=== PATIENT | male | born 1940 | race Native Hawaiian/Other Pacific Islander ===

== ENCOUNTER 2016-08-06 10:43 | Emergency (ER) | payer OTHER, BC ==
[~2016-08-06] VITALS: Ht 188 cm; Wt 117.9 kg
[~2016-08-06 10:43] MED LIST: ADVAIR DISK1 IN; ALBUTEROL0.083 % IN; ASA LO-DOSE81 MG PO; FLOMAX0.4 MG OR; FLUT0.05 NAS; FURO40TA93 PO; GABA100C2 PO; GABA300C2 PO; GLIM2TAB PO; GLUCOPHAGE1000 MG PO; IPRASOL5 IN; KLOR-CON 1010 MEQ OR; LASIX40 MG OR; LATA0.00 OP; LEVEMIR FLEXPEN SC; LEVEMIR SC; METFORMIN1000 MG PO; MULT VITAMI1 PO; MUPI2OIN2 TOP; NYST100048 PO; PRED10TA27 PO; SIMV10TA PO; SIMV20TA2 PO; TAMS0.4C PO; THEOPHYLLINE400 MG PO; TIOTCAP2 INH; TRAVATAN Z0.004 % OP; TRIM800T12 PO; Z-PAK PO; simvastatin PO
[2016-08-06 11:02] VITALS: BP 130/79; TEMP 98.7
== END 2016-08-06 11:45 | disposition home or self-care (01) ==
LOC: ED 10:43
PROC: 3E1CX8Z Irrigation of Eye using Irrigating Substance (ICD-10-PCS; principal; 2016-08-06)
DX: T15.92XA Foreign body on external eye, part unspecified, left eye, initial encounter (principal); H57.12 Ocular pain, left eye
CPT/HCPCS: 99282

== ENCOUNTER 2016-08-13 08:16 | Outpatient (CLI) | payer OTHER, BC | END 2016-08-13 19:06 | disposition home or self-care (01) | LOC: RESP 08:16 | DX: J44.9 Chronic obstructive pulmonary disease, unspecified (principal) | CPT/HCPCS: 36600; 82805; 94640; 94664 ==

== ENCOUNTER 2016-08-28 06:55 | Outpatient (CLI) | payer OTHER, BC | END 2016-08-28 19:54 | disposition home or self-care (01) | LOC: CT 06:55 | DX: I71.4 Abdominal aortic aneurysm, without rupture (principal) | CPT/HCPCS: 36415; 82565; 84520 ==

== ENCOUNTER 2016-09-16 11:22 | Outpatient (CLI) | payer OTHER, BC ==
[2016-09-16 12:13] LABS: POTASSIUM 4.5 mmol/L (3.6-5.2)
== END 2016-09-16 22:51 | disposition home or self-care (01) ==
LOC: LABW 11:22
PROVIDERS: Internal Medicine Cardiovascular Disease
DX: R06.02 Shortness of breath (principal); Z79.899 Other long term (current) drug therapy; Z51.81 Encounter for therapeutic drug level monitoring
CPT/HCPCS: 36415; 80048; 83880

== ENCOUNTER 2016-09-22 11:24 | Inpatient (IN) | payer OTHER, BC ==
[~2016-09-22] VITALS: Ht 188 cm; Wt 120.2 kg
[2016-09-22 12:15] VITALS: BP 152/85; TEMP 102.8; Ht 188 cm; Wt 120.2 kg
[2016-09-22 15:15] LABS: PLATELET COUNT 131 K/uL (142-355)
[2016-09-22 16:00] VITALS: BP 148/86; TEMP 103.4
[2016-09-22 16:26] LABS: POTASSIUM 4.2 mmol/L (3.6-5.2)
[2016-09-22 20:00] VITALS: BP 111/60; TEMP 99.2
[2016-09-23 00:15] VITALS: BP 135/77; TEMP 99.8
[2016-09-23 04:00] VITALS: BP 131/84; TEMP 99.3
[2016-09-23 08:00] VITALS: BP 122/62; TEMP 98
[2016-09-23 08:02] LABS: PLATELET COUNT 197 K/uL (142-355)
[2016-09-23] MEDS ORDERED: GLIM2TAB PO (08:08)
[2016-09-23 12:00] VITALS: BP 107/61; TEMP 99.2
[2016-09-23 16:00] VITALS: BP 97/62; TEMP 98.7
[2016-09-23 20:20] VITALS: BP 138/75; TEMP 99.2
[2016-09-24 00:09] VITALS: BP 113/65; TEMP 100.7
[2016-09-24 04:00] VITALS: BP 123/76; TEMP 97.7
[2016-09-24 05:19] LABS: PLATELET COUNT 188 K/uL (142-355)
[2016-09-24 07:57] VITALS: BP 109/55; TEMP 98.9
[2016-09-24 12:00] VITALS: BP 116/63; TEMP 98.6
[2016-09-24 16:00] VITALS: BP 120/58; TEMP 100.2
[2016-09-24 20:00] VITALS: BP 124/61; TEMP 99.8
[2016-09-25] VITALS: BP 110/80; TEMP 98.6
[2016-09-25 04:00] VITALS: BP 104/55; TEMP 99.1
[2016-09-25 05:13] LABS: PLATELET COUNT 221 K/uL (142-355)
[2016-09-25 05:49] LABS: POTASSIUM 3.6 mmol/L (3.6-5.2)
[2016-09-25 08:00] VITALS: BP 118/65; TEMP 97.9
[2016-09-25 12:00] VITALS: BP 121/62; TEMP 97.6
[2016-09-25 16:00] VITALS: BP 102/62; TEMP 98
[2016-09-25 20:00] VITALS: BP 97/60; TEMP 99.3
[2016-09-26] VITALS: BP 143/86; TEMP 98.4
[2016-09-26 04:00] VITALS: BP 118/77; TEMP 98.4
[2016-09-26 05:36] LABS: PLATELET COUNT 237 K/uL (142-355)
[2016-09-26 05:52] LABS: POTASSIUM 3.6 mmol/L (3.6-5.2); SODIUM 135 mmol/L (136-145)
[2016-09-26 08:00] VITALS: BP 130/78; TEMP 97.9
[2016-09-26 12:00] VITALS: BP 121/60; TEMP 98.6
== END 2016-09-26 16:55 | disposition home or self-care (01) | DRG 871 ==
LOC: MED/SURG 11:24
PROVIDERS: Emergency Medicine; Internal Medicine; ADMIT Physician Assistant
DX: A41.89 Other specified sepsis (principal); J18.8 Other pneumonia, unspecified organism; J44.1 Chronic obstructive pulmonary disease with (acute) exacerbation; Y95 Nosocomial condition; R06.09 Other forms of dyspnea; I10 Essential (primary) hypertension; Z99.81 Dependence on supplemental oxygen; E11.9 Type 2 diabetes mellitus without complications; E03.8 Other specified hypothyroidism
CPT/HCPCS: 36415; 36600; 80053; 80200; 80335; 81000; 82805; 82948; 83735; 83880; 85027; 87070; 87185; 87205; 94640; 94664; 94760; 96372; J1650; J1956; J2543; J3260

== ENCOUNTER 2016-10-14 12:31 | Outpatient (CLI) | payer OTHER, BC ==
[2016-10-14 13:16] LABS: POTASSIUM 4.7 mmol/L (3.6-5.2); SODIUM 136 mmol/L (136-145)
== END 2016-10-14 19:16 | disposition home or self-care (01) ==
LOC: LABW 12:31
PROVIDERS: Internal Medicine Cardiovascular Disease
DX: R06.02 Shortness of breath (principal); Z79.899 Other long term (current) drug therapy; Z51.81 Encounter for therapeutic drug level monitoring
CPT/HCPCS: 36415; 80048; 83880

== ENCOUNTER 2016-10-30 12:41 | Outpatient (CLI) | payer OTHER, BC | END 2016-10-30 20:27 | disposition home or self-care (01) | LOC: US 12:41 | DX: M79.605 Pain in left leg (principal) ==

== ENCOUNTER 2016-11-11 10:30 | Outpatient (CLI) | payer OTHER, BC ==
[2016-11-11 11:03] LABS: POTASSIUM 4.7 mmol/L (3.6-5.2)
== END 2016-11-11 19:05 | disposition home or self-care (01) ==
LOC: LABW 10:30
PROVIDERS: Internal Medicine Cardiovascular Disease
DX: R60.9 Edema, unspecified (principal)
CPT/HCPCS: 36415; 80048

== ENCOUNTER 2016-11-18 07:23 | Outpatient (CLI) | payer OTHER, BC ==
[2016-11-18 08:35] LABS: PLATELET COUNT 171 K/uL (142-355)
[2016-11-18 08:54] LABS: POTASSIUM 4.6 mmol/L (3.6-5.2); SODIUM 139 mmol/L (136-145)
== END 2016-11-18 19:08 | disposition home or self-care (01) ==
LOC: LABW 07:23
PROVIDERS: Internal Medicine
DX: E11.49 Type 2 diabetes mellitus with other diabetic neurological complication (principal); Z12.5 Encounter for screening for malignant neoplasm of prostate
CPT/HCPCS: 36415; 80053; 80061; 81000; 82043; 82570; 83036; 84153; 84443; 85027

== ENCOUNTER 2016-12-22 13:52 | Outpatient (CLI) | payer OTHER, BC | END 2016-12-22 19:12 | disposition home or self-care (01) | LOC: RESP 13:52 | DX: J44.9 Chronic obstructive pulmonary disease, unspecified (principal); Z68.33 Body mass index [BMI] 33.0-33.9, adult ==

== ENCOUNTER 2017-01-01 14:51 | Emergency (ER) | payer OTHER, BC ==
[~2017-01-01] VITALS: Ht 188 cm; Wt 117.9 kg
[2017-01-01 16:47] VITALS: BP 115/66; TEMP 98.1
== END 2017-01-01 16:52 | disposition home or self-care (01) ==
LOC: ED 14:51
PROC: 3E10X8Z Irrigation of Skin and Mucous Membranes using Irrigating Substance (ICD-10-PCS; principal; 2017-01-01)
DX: S60.011A Contusion of right thumb without damage to nail, initial encounter (principal); W20.8XXA Other cause of strike by thrown, projected or falling object, initial encounter; Y93.89 Activity, other specified; Y92.89 Other specified places as the place of occurrence of the external cause; Y99.8 Other external cause status
CPT/HCPCS: 99282

== ENCOUNTER 2017-02-19 22:17 | Emergency (ER) | payer OTHER, BC ==
[~2017-02-19] VITALS: Ht 188 cm; Wt 117.9 kg
[2017-02-19 23:39] LABS: PLATELET COUNT 187 K/uL (142-355)
[2017-02-19 23:45] LABS: POTASSIUM 4.4 mmol/L (3.6-5.2)
[2017-02-20 01:03] VITALS: BP 136/90; TEMP 98.9
== END 2017-02-20 01:15 | disposition home or self-care (01) ==
LOC: ED 22:17
PROVIDERS: Specialist
DX: K59.09 Other constipation (principal); R10.84 Generalized abdominal pain
CPT/HCPCS: 36415; 80053; 81000; 85027; 87040; 87205; 96374; 99284; J1885

== ENCOUNTER 2017-05-10 07:29 | Outpatient (CLI) | payer OTHER, BC ==
[2017-05-10 07:54] LABS: PLATELET COUNT 165 K/uL (142-355)
== END 2017-05-10 19:29 | disposition home or self-care (01) ==
LOC: LABW 07:29
PROVIDERS: Internal Medicine
DX: E11.9 Type 2 diabetes mellitus without complications (principal)
CPT/HCPCS: 36415; 80053; 80061; 81000; 82043; 82570; 83036; 84439; 84443; 85027

== ENCOUNTER 2017-07-12 11:27 | Emergency (ER) | payer OTHER, BC ==
[~2017-07-12] VITALS: Ht 188 cm; Wt 114.3 kg
[2017-07-12 12:09] LABS: PLATELET COUNT 147 K/uL (142-355)
[2017-07-12 15:47] VITALS: BP 162/74; TEMP 99
== END 2017-07-12 16:11 | disposition home or self-care (01) ==
LOC: ED 11:27
DX: J44.1 Chronic obstructive pulmonary disease with (acute) exacerbation (principal); E11.9 Type 2 diabetes mellitus without complications; R00.0 Tachycardia, unspecified
CPT/HCPCS: 36415; 80053; 81000; 82550; 84484; 85027; 87081; 87804; 87880; 93005; 94640; 94664; 94760; 96372; 99283; J0696

== ENCOUNTER 2017-10-22 09:25 | Outpatient (CLI) | payer OTHER, BC ==
[2017-10-22 10:16] LABS: PLATELET COUNT 161 K/uL (142-355)
[2017-10-22 12:23] LABS: POTASSIUM 4.7 mmol/L (3.6-5.2)
== END 2017-10-22 20:23 | disposition home or self-care (01) ==
LOC: LABW 09:25
PROVIDERS: Internal Medicine
DX: E11.42 Type 2 diabetes mellitus with diabetic polyneuropathy (principal)
CPT/HCPCS: 36415; 80053; 80061; 81000; 82043; 82570; 83036; 84439; 84443; 85027

== ENCOUNTER 2017-12-27 08:51 | Outpatient (CLI) | payer OTHER, BC | END 2017-12-27 19:48 | disposition home or self-care (01) | LOC: US 08:51 | DX: R31.0 Gross hematuria (principal) ==

== ENCOUNTER 2018-04-25 07:51 | Outpatient (CLI) | payer OTHER, BC ==
[2018-04-25 08:13] LABS: PLATELET COUNT 244 K/uL (142-355)
== END 2018-04-25 19:26 | disposition home or self-care (01) ==
LOC: LABW 07:51
PROVIDERS: Internal Medicine
DX: E11.9 Type 2 diabetes mellitus without complications (principal)
CPT/HCPCS: 36415; 80053; 80061; 81000; 82043; 82570; 83036; 84153; 84439; 84443; 85027

== ENCOUNTER 2018-08-23 17:03 | Emergency (ER) | payer OTHER, BC ==
[~2018-08-23] VITALS: Ht 188 cm; Wt 116.6 kg
[2018-08-23 18:45] VITALS: BP 121/62; TEMP 98.9
== END 2018-08-23 18:45 | disposition home or self-care (01) ==
LOC: ED 17:03
DX: J11.1 Influenza due to unidentified influenza virus with other respiratory manifestations (principal)
CPT/HCPCS: 87502; 87651; 99283

== ENCOUNTER 2018-09-20 06:45 | Outpatient (CLI) | payer OTHER, BC ==
[2018-09-20 08:29] LABS: PLATELET COUNT 182 K/uL (142-355)
[2018-09-20 08:43] LABS: POTASSIUM 4.1 mmol/L (3.6-5.2)
== END 2018-09-20 23:46 | disposition home or self-care (01) ==
LOC: LAB 06:45
PROVIDERS: Internal Medicine
DX: E11.8 Type 2 diabetes mellitus with unspecified complications (principal)
CPT/HCPCS: 36415; 80053; 80061; 81000; 83036; 84439; 84443; 85027

== ENCOUNTER 2019-02-04 08:14 | Outpatient (CLI) | payer OTHER, BC ==
[2019-02-04 08:35] LABS: PLATELET COUNT 163 K/uL (142-355)
[2019-02-04 08:38] LABS: POTASSIUM 4.7 mmol/L (3.6-5.2)
[2019-02-04 08:48] LABS: PARTIAL THROMBOPLASTIN TIME 25.2 SECONDS (24.5-33.6)
== END 2019-02-04 23:25 | disposition home or self-care (01) ==
LOC: LABW 08:14
PROVIDERS: Surgery
DX: Z01.810 Encounter for preprocedural cardiovascular examination (principal); Z01.812 Encounter for preprocedural laboratory examination; I71.4 Abdominal aortic aneurysm, without rupture; Z51.81 Encounter for therapeutic drug level monitoring; Z79.899 Other long term (current) drug therapy
CPT/HCPCS: 36415; 80048; 85027; 85610; 85730; 93005

== ENCOUNTER 2019-03-02 10:49 | Outpatient (CLI) | payer OTHER, BC | END 2019-03-02 23:59 | disposition home or self-care (01) | LOC: LAB 10:49 | DX: Z48.812 Encounter for surgical aftercare following surgery on the circulatory system (principal); I71.4 Abdominal aortic aneurysm, without rupture; E11.65 Type 2 diabetes mellitus with hyperglycemia; J44.9 Chronic obstructive pulmonary disease, unspecified; I73.89 Other specified peripheral vascular diseases | CPT/HCPCS: 85014; 85018 ==

== ENCOUNTER 2019-03-21 10:30 | Outpatient (CLI) | payer OTHER, BC ==
[2019-03-21 10:57] LABS: PLATELET COUNT 175 K/uL (142-355)
== END 2019-03-21 22:54 | disposition home or self-care (01) ==
LOC: LAB 10:30
PROVIDERS: Physician Assistant
DX: D50.0 Iron deficiency anemia secondary to blood loss (chronic) (principal)
CPT/HCPCS: 85027

== ENCOUNTER 2019-04-24 08:17 | Outpatient (CLI) | payer OTHER, BC ==
[2019-04-24 09:16] LABS: PLATELET COUNT 234 K/uL (142-355)
[2019-04-24 09:28] LABS: POTASSIUM 4.5 mmol/L (3.6-5.2)
== END 2019-04-24 22:13 | disposition home or self-care (01) ==
LOC: LABW 08:17
PROVIDERS: Internal Medicine
DX: E11.51 Type 2 diabetes mellitus with diabetic peripheral angiopathy without gangrene (principal); Z12.5 Encounter for screening for malignant neoplasm of prostate; N40.0 Benign prostatic hyperplasia without lower urinary tract symptoms; Z79.899 Other long term (current) drug therapy
CPT/HCPCS: 36415; 80053; 80061; 81000; 82043; 82570; 83036; 84153; 84439; 84443; 85027

== ENCOUNTER 2019-05-17 13:54 | Outpatient (CLI) | payer OTHER, BC | END 2019-05-17 19:53 | disposition home or self-care (01) | LOC: RESP 13:54 | DX: J44.9 Chronic obstructive pulmonary disease, unspecified (principal) ==

== ENCOUNTER 2019-07-25 09:23 | Outpatient (CLI) | payer OTHER, BC ==
[2019-07-25 10:15] LABS: PLATELET COUNT 179 K/uL (142-355)
[2019-07-25 10:38] LABS: POTASSIUM 4.5 mmol/L (3.6-5.2)
== END 2019-07-25 17:00 | disposition home or self-care (01) ==
LOC: LABW 09:23
PROVIDERS: Internal Medicine
DX: E11.59 Type 2 diabetes mellitus with other circulatory complications (principal); N40.0 Benign prostatic hyperplasia without lower urinary tract symptoms
CPT/HCPCS: 36415; 80053; 80061; 81000; 82043; 82570; 83036; 84153; 84439; 84443; 85027

== ENCOUNTER 2019-09-29 11:04 | Outpatient (CLI) | payer OTHER, BC | END 2019-09-29 20:14 | disposition home or self-care (01) | LOC: LABW 11:04 | DX: N39.0 Urinary tract infection, site not specified (principal) | CPT/HCPCS: 81000; 87077; 87086; 87088; 87186 ==

== ENCOUNTER 2020-01-17 19:29 | Outpatient (CLI) | payer OTHER, BC ==
[2020-01-17 21:11] LABS: POTASSIUM 4.6 mmol/L (3.6-5.2)
== END 2020-01-17 22:11 | disposition home or self-care (01) ==
LOC: LABW 19:29
PROVIDERS: Internal Medicine
DX: E11.42 Type 2 diabetes mellitus with diabetic polyneuropathy (principal); E03.8 Other specified hypothyroidism
CPT/HCPCS: 36415; 80053; 80061; 81000; 82043; 82570; 83036; 84439; 84443

== ENCOUNTER 2020-06-09 23:45 | Emergency (ER) | payer OTHER, BC ==
[~2020-06-09] VITALS: Ht 188 cm; Wt 116.6 kg
[2020-06-10 00:47] LABS: POTASSIUM 4.3 mmol/L (3.6-5.2); SODIUM 130 mmol/L (136-145)
[2020-06-10 00:48] LABS: PLATELET COUNT 174 K/uL (142-355)
[2020-06-10 02:13] VITALS: BP 121/51; TEMP 98.9
== END 2020-06-10 02:16 | disposition home or self-care (01) ==
LOC: ED 23:45
PROVIDERS: Family Medicine
DX: N39.0 Urinary tract infection, site not specified (principal); J44.1 Chronic obstructive pulmonary disease with (acute) exacerbation; Z20.828 Contact with and (suspected) exposure to other viral communicable diseases; W18.12XA Fall from or off toilet with subsequent striking against object, initial encounter; Y92.89 Other specified places as the place of occurrence of the external cause
CPT/HCPCS: 36415; 36600; 80053; 81000; 82550; 82553; 82805; 83605; 83880; 84484; 85027; 87077; 87086; 87088; 87186; 87502; 87635; 93005; 94664; 96360; 96365; 96375; 99284; J0696; J2930; U0003

== ENCOUNTER 2020-08-08 13:51 | Outpatient (CLI) | payer OTHER, BC | END 2020-08-08 20:48 | disposition home or self-care (01) | LOC: RAD 13:51 | PROVIDERS: ATTEND Internal Medicine | DX: R09.1 Pleurisy (principal) ==

== ENCOUNTER 2020-09-20 07:50 | Outpatient (CLI) | payer OTHER, BC ==
[2020-09-20 08:29] LABS: PLATELET COUNT 153 K/uL (142-355)
[2020-09-20 08:44] LABS: POTASSIUM 4.5 mmol/L (3.6-5.2)
== END 2020-09-20 21:10 | disposition home or self-care (01) ==
LOC: LABW 07:50
PROVIDERS: ATTEND Internal Medicine
DX: E11.9 Type 2 diabetes mellitus without complications (principal)
CPT/HCPCS: 36415; 80053; 80061; 81000; 82043; 83036; 84439; 84443; 85027

== ENCOUNTER 2020-10-16 08:22 | Outpatient (CLI) | payer OTHER, BC | END 2020-10-16 22:37 | disposition home or self-care (01) | LOC: RESP 08:22 | PROVIDERS: ATTEND Internal Medicine Sleep Medicine | DX: J44.9 Chronic obstructive pulmonary disease, unspecified (principal) ==

== ENCOUNTER 2020-12-30 18:11 | Outpatient (CLI) | payer OTHER, BC | END 2020-12-30 20:09 | disposition home or self-care (01) | LOC: LAB 18:11 | PROVIDERS: ATTEND Internal Medicine | DX: L03.115 Cellulitis of right lower limb (principal) | CPT/HCPCS: 87070; 87205 ==

== ENCOUNTER 2021-05-19 08:06 | Outpatient (CLI) | payer OTHER, BC ==
[2021-05-19 08:49] LABS: PLATELET COUNT 247 K/uL (142-355)
[2021-05-19 09:08] LABS: POTASSIUM 4.3 mmol/L (3.6-5.2)
== END 2021-05-19 19:20 | disposition home or self-care (01) ==
LOC: LABW 08:06
PROVIDERS: ATTEND Internal Medicine
DX: I10 Essential (primary) hypertension (principal); E11.9 Type 2 diabetes mellitus without complications; J44.9 Chronic obstructive pulmonary disease, unspecified; E03.8 Other specified hypothyroidism
CPT/HCPCS: 36415; 80053; 80061; 81000; 82043; 83036; 84439; 84443; 85027

== ENCOUNTER 2021-10-30 14:48 | Outpatient (CLI) | payer OTHER, BC | END 2021-10-30 21:29 | disposition home or self-care (01) | LOC: RAD 14:48 | PROVIDERS: ATTEND Nurse Practitioner Family | DX: J44.9 Chronic obstructive pulmonary disease, unspecified (principal) ==

== ENCOUNTER 2021-11-14 08:53 | Outpatient (CLI) | payer OTHER, BC ==
[2021-11-14 10:02] LABS: PLATELET COUNT 176 K/uL (142-355)
== END 2021-11-14 18:53 | disposition home or self-care (01) ==
LOC: LABW 08:53
PROVIDERS: ATTEND Internal Medicine
DX: E11.9 Type 2 diabetes mellitus without complications (principal)
CPT/HCPCS: 36415; 80053; 80061; 81000; 83036; 84439; 84443; 85027

== ENCOUNTER 2022-02-25 13:37 | Outpatient (CLI) | payer OTHER, BC | END 2022-02-25 19:26 | disposition home or self-care (01) | LOC: RAD 13:37 | PROVIDERS: ATTEND Nurse Practitioner Family | DX: J44.9 Chronic obstructive pulmonary disease, unspecified (principal) ==

== ENCOUNTER 2022-03-03 12:56 | Outpatient (CLI) | payer OTHER, BC | END 2022-03-03 21:38 | disposition home or self-care (01) | LOC: RESP 12:56 | PROVIDERS: ATTEND Nurse Practitioner Family | DX: J44.9 Chronic obstructive pulmonary disease, unspecified (principal) ==

== ENCOUNTER 2023-03-26 11:34 | Outpatient (CLI) | payer OTHER, BC ==
[~2023-03-26 11:34] MED LIST changes: +GABA400C2 PO; +KLOR-CON M1010 MEQ PO; +LEVO0.0529 PO; +METF100038 PO; +UROXATRAL10 MG PO; +WIXELA INHUB 501 AER INH
[2023-03-26 12:08] LABS: PLATELET COUNT 175 K/uL (142-355)
[2023-03-26 12:34] LABS: POTASSIUM 4.2 mmol/L (3.6-5.2)
== END 2023-03-26 19:09 | disposition home or self-care (01) ==
LOC: LABW 11:34
PROVIDERS: ATTEND Internal Medicine
DX: E11.9 Type 2 diabetes mellitus without complications (principal); E03.8 Other specified hypothyroidism; I25.10 Atherosclerotic heart disease of native coronary artery without angina pectoris; R06.02 Shortness of breath
CPT/HCPCS: 80053; 80061; 81002; 83036; 83880; 84439; 84443; 85027

== ENCOUNTER 2023-08-18 07:59 | Outpatient (CLI) | payer OTHER, BC ==
[2023-08-18 08:34] LABS: PLATELET COUNT 185 K/uL (142-355)
[2023-08-18 08:59] LABS: POTASSIUM 4.7 mmol/L (3.6-5.2)
== END 2023-08-18 19:16 | disposition home or self-care (01) ==
LOC: LABW 07:59
PROVIDERS: ATTEND Internal Medicine
DX: E11.9 Type 2 diabetes mellitus without complications (principal); N40.0 Benign prostatic hyperplasia without lower urinary tract symptoms
CPT/HCPCS: 80053; 80061; 81002; 83036; 84153; 84439; 84443; 85027

== ENCOUNTER 2023-09-03 12:27 | Outpatient (CLI) | payer OTHER, BC | END 2023-09-03 20:08 | disposition home or self-care (01) | LOC: MRI 12:27 | PROVIDERS: ATTEND Family Medicine | DX: E11.621 Type 2 diabetes mellitus with foot ulcer (principal); L97.511 Non-pressure chronic ulcer of other part of right foot limited to breakdown of skin | CPT/HCPCS: 36415; 82565; 84520; A9576 ==